=== PATIENT | female | born 1990 | race Caucasian/White ===

== ENCOUNTER 2018-05-01 17:32 | Emergency (ER) | payer SELFPAY, MEDICAID | END 2018-05-01 20:51 | disposition left against medical advice (07) | LOC: E/R 17:32 | DX: Z53.21 Procedure and treatment not carried out due to patient leaving prior to being seen by health care provider (principal) ==

== ENCOUNTER 2018-05-08 12:53 | Outpatient (CLI) | payer BC ==
[2018-05-08] MEDS ORDERED: BISACODYL 10 MG SUPP PR (13:30)
[2018-05-08] MEDS ORDERED: NA PHOSPHATE/BIPHOS 133 ML ENEMA PR (13:30)
[2018-05-08] MEDS: PYRIDOXINE IV (14:24)
[2018-05-08] MEDS: BISACODYL (EC) 5 MG TAB PO (14:24)
[2018-05-08] MEDS: LACTATED RINGER S IV (14:24)
== END 2018-05-08 17:55 | disposition home or self-care (01) ==
LOC: OBT 12:53 → L-D 12:53 → OBT 17:55
DX: O21.0 Mild hyperemesis gravidarum (principal); O26.891 Other specified pregnancy related conditions, first trimester; E86.0 Dehydration; Z3A.09 9 weeks gestation of pregnancy
CPT/HCPCS: 36415; 96360; 96361

== ENCOUNTER 2018-05-09 22:34 | Outpatient (CLI) | payer BC ==
[2018-05-09] MEDS ORDERED: PYRIDOXINE 100 MG INJ IV (23:00)
[2018-05-10] MEDS: LACTATED RINGER S IV (00:28)
[2018-05-10] MEDS: PYRIDOXINE IV (00:28)
== END 2018-05-10 02:33 | disposition home or self-care (01) ==
LOC: OBT 22:34 → L-D 22:36
DX: O21.0 Mild hyperemesis gravidarum (principal); Z3A.09 9 weeks gestation of pregnancy
CPT/HCPCS: 96365

== ENCOUNTER 2018-05-26 15:45 | Emergency (ER) | payer BC ==
[2018-05-26] MEDS: SOD CHLORIDE 0.9% 1,000 ML IV (16:31)
[2018-05-26 16:39] LABS: ADD MAN DIFF? NO
[2018-05-26 16:45] LABS: WHITE BLOOD COUNT 9.1 10^3/ul (4.8-10.8)
[2018-05-26 16:45] LABS: BASOPHILS % 0.4 % (0.0-2.0); EOSINOPHILS # 0.1 10^3/ul (0.0-0.5); EOSINOPHILS % 0.8 % (0.0-7.0); HEMATOCRIT 38.7 % (37.0-47.0); HEMOGLOBIN 13.3 g/dl (12.0-16.0); LYMPHOCYTES # 1.8 10^3/ul (0.8-2.9); LYMPHOCYTES % 19.7 % (15.0-51.0); MEAN CORPUSCULAR HEMOGLOBIN 28.5 pg (29.0-33.0); MEAN CORPUSCULAR HGB CONC 34.4 g/dl (32.0-37.0); MEAN PLATELET VOLUME 11.1 fl (7.4-10.4); MONOCYTE # 0.6 10^3/ul (0.3-0.9); NEUTROPHIL # 6.6 10^3/ul (1.6-7.5); NEUTROPHILS % 72.8 % (39.0-77.0); PLATELET COUNT 243 10^3/UL (140-415); RED BLOOD COUNT 4.66 10^6/ul (4.20-5.40)
[2018-05-26 17:11] LABS: ALANINE AMINOTRANSFERASE 36 IU/L (13-69); ALBUMIN 3.7 g/dl (3.3-4.9); ALBUMIN/GLOBULIN RATIO 0.92; ALKALINE PHOSPHATASE 66 IU/L (42-121); ANION GAP 14 (8-16); ASPARTATE AMINO TRANSFERASE 29 IU/L (15-46); BILIRUBIN,INDIRECT 0.9 mg/dl (0-1.1); BILIRUBIN,TOTAL 0.9 mg/dl (0.2-1.3); BLOOD UREA NITROGEN 4 mg/dl (7-20); CALCIUM 9.2 mg/dl (8.4-10.2); CARBON DIOXIDE 24 mmol/L (21-31); CHLORIDE 103 mmol/L (97-110); CREATININE 0.57 mg/dl (0.44-1.00); GLUCOSE 101 mg/dl (70-220); LIPASE 252 U/L (23-300); POTASSIUM 3.9 mmol/L (3.5-5.1); SODIUM 137 mmol/L (135-144); TOTAL PROTEIN 7.7 g/dl (6.1-8.1)
[2018-05-26 17:24] LABS: ADD UMIC YES; UR ASCORBIC ACID NEGATIVE (NEGATIVE); UR BACTERIA MODERATE /HPF (NONE SEEN); UR BILIRUBIN (Dip) NEGATIVE (NEGATIVE); UR BLOOD (Dip) 1+ mg/dL (NEGATIVE); UR CLARITY CLOUDY (CLEAR); UR COLOR YELLOW (YELLOW); UR GLUCOSE (Dip) NEGATIVE (NEGATIVE); UR KETONES (Dip) 2+ mg/dL (NEGATIVE); UR LEUKOCYTE ESTERASE (Dip) 3+ Leu/ul (NEGATIVE); UR MUCUS FEW /HPF (NONE SEEN); UR NITRITE (Dip) NEGATIVE (NEGATIVE); UR RBC 17 /HPF (0-5); UR SPECIFIC GRAVITY (Dip) 1.011 (1.003-1.030); UR SQUAMOUS EPITHELIAL CELL MANY /HPF (FEW); UR TOTAL PROTEIN (Dip) NEGATIVE (NEGATIVE); UR UROBILINOGEN (Dip) NEGATIVE (NEGATIVE); UR WBC 33 /HPF (0-5)
== END 2018-05-26 18:06 | disposition home or self-care (01) ==
LOC: FTE 15:45
DX: O26.811 Pregnancy related exhaustion and fatigue, first trimester (principal); O23.41 Unspecified infection of urinary tract in pregnancy, first trimester; Z3A.12 12 weeks gestation of pregnancy
CPT/HCPCS: 80053; 81001; 83690; 85025; 87086; 96360; 99284-25

== ENCOUNTER 2018-11-30 00:30 | Inpatient (IN) | payer BC ==
[2018-11-30 01:29] LABS: ADD MAN DIFF? NO
[2018-11-30] MEDS ORDERED: BUTORPHANOL 2 MG INJ IV (01:30)
[2018-11-30] MEDS ORDERED: IBUPROFEN 600 MG TAB PO (01:30)
[2018-11-30] MEDS ORDERED: AMPICILLIN 2 GM/NS (PMX) 100 ML IV (01:30)
[2018-11-30] MEDS ORDERED: CARBOPROST 250 MCG INJ IM ×2 (01:30→05:00)
[2018-11-30] MEDS ORDERED: LIDOCAINE 1% (MPF) 30 ML INJ INJ (01:30)
[2018-11-30] MEDS ORDERED: MISOPROSTOL 200 MCG TAB PR ×2 (01:30→05:00)
[2018-11-30] MEDS ORDERED: OXYTOCIN 30 UNITS/LR 500 ML IV ×2 (01:30→05:00)
[2018-11-30 01:34] LABS: BASOPHIL # 0.1 10^3/ul (0.0-0.1); BASOPHILS % 0.5 % (0.0-2.0); EOSINOPHILS # 0.1 10^3/ul (0.0-0.5); EOSINOPHILS % 0.5 % (0.0-7.0); LYMPHOCYTES # 2.7 10^3/ul (0.8-2.9); LYMPHOCYTES % 26.4 % (15.0-51.0); MEAN CORPUSCULAR HEMOGLOBIN 29.2 pg (29.0-33.0); MEAN CORPUSCULAR HGB CONC 34.2 g/dl (32.0-37.0); MEAN CORPUSCULAR VOLUME 85.4 fl (82.0-101.0); MEAN PLATELET VOLUME 11.1 fl (7.4-10.4); MONOCYTE # 0.7 10^3/ul (0.3-0.9); MONOCYTES % 6.7 % (0.0-11.0); NEUTROPHIL # 6.7 10^3/ul (1.6-7.5); NEUTROPHILS % 65.2 % (39.0-77.0); PLATELET COUNT 287 10^3/UL (140-415); RED BLOOD COUNT 4.45 10^6/ul (4.20-5.40); RED CELL DISTRIBUTION WIDTH 15.1 % (11.5-14.5)
[2018-11-30 01:34] LABS: WHITE BLOOD COUNT 10.3 10^3/ul (4.8-10.8)
[2018-11-30 01:53] LABS: INR 0.87; PROTIME 11.9 Sec (11.9-14.9); PT RATIO 0.9
[2018-11-30 01:54] LABS: PARTIAL THROMBOPLASTIN TIME 25.4 Sec (23.0-35.0)
[2018-11-30] MEDS: LACTATED RINGER'S 1,000 ML IV ×2 (02:01→03:20)
[2018-11-30] MEDS ORDERED: NALOXONE (0.4 MG/ML) INJ IV (02:30)
[2018-11-30 02:36] LABS: HEPATITIS B SURFACE ANTIGEN NEGATIVE (NEGATIVE)
[2018-11-30] MEDS ORDERED: FENTAnyl 2MCG/ML-ROPIV 0.2% 100 ML (02:50)
[2018-11-30] MEDS: FENTAnyl 2MCG/ML-ROPIV 0.2% 100 ML BAG EPI (03:20)
[2018-11-30] MEDS: METHYLERGONOVINE 0.2 MG INJ IM (04:42)
[2018-11-30] MEDS: MINERAL OIL LIGHT 10 ML VIAL TOP (04:42)
[2018-11-30] MEDS: OXYTOCIN 30 UNITS/LR 500 ML IV ×3 (04:42→08:50)
[2018-11-30] MEDS ORDERED: ACETAMINOPHEN 325 MG TAB PO (05:00)
[2018-11-30] MEDS ORDERED: NACL 0.9% 3 ML SYG IV (05:00)
[2018-11-30] MEDS ORDERED: OXYCODONE/ASPIRIN (4.88/325) TAB PO ×2 (05:00)
[2018-11-30] MEDS ORDERED: SENNA/DOCUSATE NA (8.6MG/50MG) TAB PO (05:00)
[2018-11-30] MEDS ORDERED: DIBUCAINE 1% 30 GM OINT TOP (05:00)
[2018-11-30] MEDS ORDERED: ONDANSETRON 4 MG INJ IV (05:00)
[2018-11-30] MEDS ORDERED: METHYLERGONOVINE 0.2 MG INJ IM (05:00)
[2018-11-30] MEDS ORDERED: AMPICILLIN 1 GM/NS (PMX) 50 ML IV (05:30)
[2018-11-30] MEDS: CEPHALEXIN 500 MG CAP PO ×2 (10:04→21:15)
[2018-11-30] MEDS: IBUPROFEN 600 MG TAB PO ×4 (10:04→23:30)
[2018-11-30] MEDS: SENNA/DOCUSATE NA (8.6MG/50MG) TAB PO ×2 (10:06→21:16)
[2018-11-30] MEDS: BENZOCAINE 20% 56 ML SPRAY TOP (10:06)
[2018-11-30] MEDS: WITCH HAZEL/GLYCERIN PAD PR (10:06)
[2018-11-30] MEDS: LANOLIN HPA 1 PKT TOP (10:06)
[2018-11-30 22:15] LABS: RAPID PLASMA REAGIN NONREACTIVE (NR)
[2018-12-01] MEDS: IBUPROFEN 600 MG TAB PO ×2 (06:18→12:00)
[2018-12-01 09:19] LABS: HEMATOCRIT 32.5 % (37.0-47.0); HEMOGLOBIN 10.8 g/dl (12.0-16.0)
[2018-12-01] MEDS: CEPHALEXIN 500 MG CAP PO (09:27)
[2018-12-01] MEDS: SENNA/DOCUSATE NA (8.6MG/50MG) TAB PO (09:27)
== END 2018-12-01 16:03 | disposition home or self-care (01) | DRG 807 ==
LOC: OBT 00:30 → L-D 00:30 → OBT 00:56 → L-D 00:56 → PP1 08:22
PROVIDERS: Obstetrics & Gynecology
PROC: 10E0XZZ Delivery of Products of Conception, External Approach (ICD-10-PCS; principal; 2018-11-30)
PROC: 0HQ9XZZ Repair Perineum Skin, External Approach (ICD-10-PCS; 2018-11-30)
PROC: 4A1HXCZ Monitoring of Products of Conception, Cardiac Rate, External Approach (ICD-10-PCS; 2018-11-30)
DX: O70.0 First degree perineal laceration during delivery (principal); Z37.0 Single live birth; O69.82X0 Labor and delivery complicated by other cord entanglement, without compression, not applicable or unspecified; Z3A.39 39 weeks gestation of pregnancy
CPT/HCPCS: 62319; 76815; 85014; 85018; 85025; 85610; 85730; 86592; 86850; 86900; 86901; 87340